=== PATIENT | female | born 1975 ===

== ENCOUNTER 2016-11-05 21:10 | Emergency (ER) | payer OTHER ==
[2016-11-05 21:15] VITALS: BP 131/70
[2016-11-05] MEDS ORDERED: Meclizine TAB* 12.5 MG PO ONE (22:11)
--- NOTE | 2016-11-05 22:13 | UC ---
Ear Complaint HPI - HPI Summary HPI Summary: 41 yo female with left tinnitis x about one week constant extremely load at time ear feels plugged at times some mild disequilibirum tonight had a 10-15 minute episode of vertigo no HERRON no vomiting recent viral uri symptoms - History of Current Complaint Chief Complaint: UCEar Stated Complaint: EAR CLOGGED Time Seen by Provider: 11/05/16 22:01 Hx Obtained From: Patient Hx Last Menstrual Period: one week ago Onset/Duration: Gradual Onset, Lasting Days Severity Initially: Mild Severity Currently: Moderate Pain Intensity: 1 Pain Scale Used: 0-10 Numeric Aggravating Factors: Nothing Alleviating Factors: Nothing Associated Signs/Symptoms: Positive: Hearing Loss - at times, URI Symptoms - Allergies/Home Medications Allergies/Adverse Reactions: Allergies Allergy/AdvReac Type Severity Reaction Status Date / Time Dextromethorphan Allergy Intermediate Rash Verified 11/05/16 21:16 Penicillins Allergy Intermediate Rash Verified 11/05/16 21:16 Sulfa Drugs Allergy Intermediate Rash Verified 11/05/16 21:16 cilantro Allergy Intermediate Rash Uncoded 11/05/16 21:16 PMH/Surg Hx/FS Hx/Imm Hx Previously Healthy: Yes - Surgical History Surgical History: Yes Surgery Procedure, Year, and Place: 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 - Family History Known Family History: Positive: Hypertension - Social History Alcohol Use: None Substance Use Type: None Smoking Status (MU): Former Smoker Type: Cigarettes Review of Systems Constitutional: Negative Skin: Negative Eyes: Negative ENT: Negative Respiratory: Negative Cardiovascular: Negative Gastrointestinal: Negative Genitourinary: Negative Motor: Negative Neurovascular: Negative Musculoskeletal: Negative Neurological: Negative Psychological: Negative All Other Systems Reviewed And Are Negative: Yes Physical Exam Triage Information Reviewed: Yes Appearance: Well-Appearing, No Pain Distress, Well-Nourished Vital Signs: Initial Vital Signs Temp 99.0 F 11/05/16 21:11 Pulse 98 11/05/16 21:11 Resp 18 11/05/16 21:11 BP 131/70 11/05/16 21:11 Pulse Ox 100 11/05/16 21:11 Vital Signs Reviewed: Yes Eyes: Positive: Conjunctiva Clear ENT: Positive: Hearing grossly normal, TMs normal. Negative: Pharynx normal, Pharyngeal erythema, Nasal congestion, Nasal drainage, Tonsillar swelling, Tonsillar exudate, Trismus, Muffled/hoarse voice Dental: Negative: Gross Decay/Caries @ Neck: Positive: Supple, Nontender, No Lymphadenopathy Respiratory: Positive: Lungs clear, Normal breath sounds, No respiratory distress, No accessory muscle use Cardiovascular: Positive: RRR, No Murmur, Pulses Normal Musculoskeletal: Positive: ROM Intact, No Edema Neurological: Positive: Alert Psychological Exam: Normal Skin Exam: Normal Ear Complaint Course/Dx - Differential Dx/Diagnosis Provider Diagnoses: tinnitus. vertigo Discharge - Discharge Plan Condition: Stable Disposition: HOME Prescriptions: Meclizine TAB* [Antivert 12.5 TAB*] 25 mg PO TID PRN #15 tab PRN Reason: Vertigo Patient Education Materials: Vertigo (ED), Tinnitus (ED) Referrals: Qasim Martini MD [Medical Doctor] - As Soon As Possible
== END 2016-11-05 22:25 | disposition home or self-care (01) ==
LOC: UCEAST 21:10
DX: H93.12 Tinnitus, left ear (principal); R42 Dizziness and giddiness
CPT/HCPCS: 99212; A9270-GY; G0463

== ENCOUNTER 2018-02-25 16:24 | Emergency (ER) | payer OTHER ==
[2018-02-25 16:45] VITALS: BP 127/80
--- NOTE | 2018-02-25 17:01 | UC ---
Dizzy HPI HPI Summary: The patient is a 43-year-old female that developed the acute onset of disequilibrium about 2:30 today. Her dizziness was associated with left facial numbness and tingling as well as left arm tingling. She denies any chest pain or palpitations. Her symptoms lasted approximately 2 hours and were completely resolved by the time I examined her. She does feel a little fatigued and states her mouth feels a little dry. 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 The patient states she has had an ASD. - History Of Current Complaint Chief Complaint: UCGeneralIllness Stated Complaint: DIZZY Time Seen by Provider: 02/25/18 16:40 Hx Obtained From: Patient Hx Last Menstrual Period: 02/18/18 Onset/Duration: Sudden Onset, Lasting Hours Timing: Hours - two Severity Initially: Moderate Severity Currently: None Pain Intensity: 0 Pain Scale Used: 0-10 Numeric Character: Dizzy Aggravating Factor(s): Change In Head Position Alleviating Factor(s): Other - spontaneously resolved Associated Signs And Symptoms: Positive: Unsteady Gait. Negative: Nausea, Vomiting, Diaphoresis, Tinnitus, Chest Pain, SOB, Palpitations, Visual Changes, Decreased Oral Intake, Change In Medication, Change In Diet, OTC Medications - Allergies/Home Medications Allergies/Adverse Reactions: Allergies Allergy/AdvReac Type Severity Reaction Status Date / Time dextromethorphan Allergy Intermediate Rash Verified 02/25/18 16:56 Penicillins Allergy Intermediate Rash Verified 02/25/18 16:56 Sulfa (Sulfonamide Allergy Intermediate Rash Verified 02/25/18 16:56 Antibiotics) cilantro Allergy Intermediate Rash Uncoded 11/05/16 21:16 Home Medications: Home Medications Budesonide/Formote 160/4.5(NF) [Symbicort 160/4.5 (NF)] 2 puff INH DAILY [History Confirmed 02/25/18] Iron,Carb/Vit C/Vit B12/Folic [Iron 100 Plus Tablet] 02/25/18 [History] PMH/Surg Hx/FS Hx/Imm Hx Previously Healthy: Yes Cardiovascular History: Other Other Cardiovascular History: ASD, Atrial myxoma Neurological History: CVA - Surgical History Surgical History: Yes Surgery Procedure, Year, and Place: 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 - Family History Known Family History: Positive: Hypertension - Social History Alcohol Use: None Substance Use Type: None Smoking Status (MU): Former Smoker Type: Cigarettes Review of Systems Constitutional: Negative Skin: Negative Eyes: Negative ENT: Negative Respiratory: Negative Cardiovascular: Negative Gastrointestinal: Negative Genitourinary: Negative Motor: Negative Neurovascular: Negative Musculoskeletal: Negative Neurological: Numbness - resolved Psychological: Negative Is Patient Immunocompromised?: No All Other Systems Reviewed And Are Negative: Yes Physical Exam Triage Information Reviewed: Yes Appearance: Well-Appearing, No Pain Distress, Well-Nourished Vital Signs: Initial Vital Signs Temp 99.4 F 02/25/18 16:41 Pulse 99 02/25/18 16:41 Resp 16 02/25/18 16:41 BP 127/80 02/25/18 16:41 Pulse Ox 96 02/25/18 16:41 Eyes: Positive: Conjunctiva Clear, Other: - EOMI/PERRL ENT: Positive: Hearing grossly normal. Negative: Nasal congestion, Nasal drainage, Trismus, Muffled voice, Hoarse voice, Dental tenderness, Sinus tenderness Neck: Positive: Supple, Nontender, No Lymphadenopathy, Other: - no bruits Respiratory: Positive: Lungs clear, Normal breath sounds, No respiratory distress, No accessory muscle use Cardiovascular: Positive: RRR, No Murmur Musculoskeletal: Positive: Strength Intact, ROM Intact, No Edema Neurological Exam: Normal Neurological: Positive: Alert, Muscle Tone Normal, Other: - CN 2-12 intact, strength 5/5, normal gait, (-) pronator drift, - [place] Psychological Exam: Normal Skin Exam: Normal Diagnostics - EKG Cardiac Rate: NL Cardiac Rhythm: Sinus: Normal Ectopy: None ST Segment: Normal Dizzy Course/Dx - Course Course Of Treatment: D/W Dr. Sosa to [facility]. pt declines EMS transfer/son driving her - Differential Dx/Diagnosis Provider Diagnoses: Dizziness/transient left arm and face paresthesias. ?TIA Discharge - Sign-Out/Discharge Documenting (check all that apply): Patient Departure All imaging exams completed and their final reports reviewed: No Studies - Discharge Plan Condition: Stable Disposition: TRANS HIGHER L OF CARE FAC Referrals: Gualberto Sosa MD [Primary Care Provider] - Additional Instructions: You may have had a TIA I suggest you go to the ER for further evaluation - Billing Disposition and Condition Condition: STABLE Disposition: Trans Higher Lvl of Care Fac
== END 2018-02-25 17:08 | disposition short-term general hospital (02) ==
LOC: UCEAST 16:24
DX: R42 Dizziness and giddiness (principal); R20.2 Paresthesia of skin; R26.81 Unsteadiness on feet; Z88.0 Allergy status to penicillin; Z88.2 Allergy status to sulfonamides; Z88.8 Allergy status to other drugs, medicaments and biological substances; Z87.891 Personal history of nicotine dependence
CPT/HCPCS: 93005; 99212; G0463

== ENCOUNTER 2018-02-25 17:41 | Emergency (ER) | payer OTHER ==
--- NOTE | 2018-02-25 18:09 | ED ---
Dizziness - HPI Summary HPI Summary: The pt is a 43 y/o female presenting to [facility] c/o of intermittent dizziness since 1400 today afternoon. The episodes last about 5 minutes worse when she turns her head sideways. She was referred from Urgent Care where was seen for the same and told that the sx could be related to a previous TIA in 2005. The suspected lack of breakfast and lunch but the dizziness is unresolved by eating. She notes fatigue and mild weakness in the face and LLE but denies numbness. - History Of Current Complaint Chief Complaint: EDDizziness Stated Complaint: DIZZINESS,TINGLING LT SIDE ARE FACE Time Seen by Provider: 02/25/18 17:56 Hx Obtained From: Patient Onset/Duration: Still Present Timing: Intermittent Episode Lasting - 5 minutes Character: Dizzy Aggravating Factor(s): Change In Head Position Alleviating Factor(s): Nothing Associated Signs And Symptoms: Positive: Negative - Numbness, Other: - Weakness of the face and LUE - Allergies/Home Medications Allergies/Adverse Reactions: Allergies Allergy/AdvReac Type Severity Reaction Status Date / Time dextromethorphan Allergy Intermediate Rash Verified 02/25/18 16:56 Penicillins Allergy Intermediate Rash Verified 02/25/18 16:56 Sulfa (Sulfonamide Allergy Intermediate Rash Verified 02/25/18 16:56 Antibiotics) cilantro Allergy Intermediate Rash Uncoded 11/05/16 21:16 PMH/Surg Hx/FS Hx/Imm Hx Previously Healthy: No Endocrine/Hematology History: Denies: Hx Diabetes, Hx Thyroid Disease Cardiovascular History: Denies: Hx Hypertension Respiratory History: Reports: Hx Asthma Denies: Hx Chronic Obstructive Pulmonary Disease (COPD) GI History: Denies: Hx Ulcer Neurological History: Reports: Hx Transient Ischemic Attacks (TIA) - In 2005 - Surgical History Surgery Procedure, Year, and Place: 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 Infectious Disease History: No Infectious Disease History: Denies: Hx Clostridium Difficile, Hx Hepatitis, Hx Human Immunodeficiency Virus (HIV), Hx of Known/Suspected MRSA, Hx Shingles, Hx Tuberculosis, Hx Known/ Suspected VRE, Hx Known/Suspected VRSA, History Other Infectious Disease, Traveled Outside the [place] in Last 30 Days - Family History Known Family History: Positive: Hypertension - Social History Occupation: Unemployed Lives: Alone Alcohol Use: None Substance Use Type: Reports: None Smoking Status (MU): Former Smoker Type: Cigarettes Review of Systems Positive: Fatigue, Other - Positive: dizziness, weakness of the face and LUE Negative: Numbness All Other Systems Reviewed And Are Negative: Yes Physical Exam - Summary Physical Exam Summary: Appearance: Well appearing, no pain distress Skin: warm, dry, reflects adequate perfusion Head/face: normal Eyes: EOMI, JANELL ENT: normal Neck: supple, non-tender Respiratory: CTA, breath sounds present Cardiovascular: RRR, pulses symmetrical Abdomen: non-tender, soft Bowel: present Musculoskeletal: normal, strength/ROM intact Neuro: normal, sensory motor intact, A&Ox3 GCS: 15 Triage Information Reviewed: Yes Vital Signs On Initial Exam: Initial Vitals Temp Pulse Resp BP Pulse Ox 97.9 F 92 17 127/78 100 02/25/18 17:53 02/25/18 17:53 02/25/18 17:53 02/25/18 17:53 02/25/18 17:53 Vital Signs Reviewed: Yes Diagnostics - Vital Signs Vital Signs Temp Pulse Resp BP Pulse Ox 02/25/18 17:53 97.9 F 92 17 127/78 100 - Laboratory Result Diagrams: 02/25/18 19:10 02/25/18 19:10 Lab Statement: Any lab studies that have been ordered have been reviewed, and results considered in the medical decision making process. - CT Brain CT CT Interpretation Completed By: Radiologist - IMPRESSION: 1. No acute intracranial abnormality.The ED physician reviewed this radiology report. - EKG 18:15 Cardiac Rate: NL - 92 bpm EKG Rhythm: Sinus Rhythm EKG Interpretation: No acute changes Dizzy Course/Dx - Course Course Of Treatment: A 43-year-old F presents to the ED with a CC of intermittent dizziness since 1400 today afternoon. The episodes last about 5 minutes worse when she turns her head sideways. She was referred from Urgent Care where was seen for the same and told that the sx could be related to a previous TIA in 2005. The dizziness is unresolved by eating. She notes fatigue and mild weakness in the face and LLE but denies numbness. A physical exam and EKG are both normal. A brain CT reveals no acute intracranial abnormality. In the ED course, pt was given Meclizine 25 mg PO which improved the symptoms. Patient will be discharged with a final Dx of vertigo and a referral to Dr. Raf Prasad MD (ENT). Allergies noted. - Diagnoses Differential Diagnosis/HQI/PQRI: Benign Paroxysmal Positional Vertigo, CVA, Dysrhythmia, Labyrinthitis Provider Diagnoses: Vertigo Discharge - Sign-Out/Discharge Documenting (check all that apply): Patient Departure - DC - Discharge Plan Condition: Improved Disposition: HOME Prescriptions: Meclizine TAB* [Antivert 12.5 TAB*] 25 mg PO TID #20 tab Patient Education Materials: Vertigo (ED) Referrals: Gualberto Sosa MD [Primary Care Provider] - 3 Days Mark Carbone MD [Medical Doctor] - As Soon As Possible - Billing Disposition and Condition Condition: IMPROVED Disposition: Home - Attestation Statements Document Initiated by Scribe: Yes Documenting Scribe: Jennie Lester Provider For Whom Scribe is Documenting (Include Credential): Dr. Otto Sosa MD Scribe Attestation: Jennie Medina , scribed for Dr. Otto Sosa MD on 02/25/18 at 2108. Scribe Documentation Reviewed: Yes Provider Attestation: The documentation as recorded by the scribeJennie accurately reflects the service I personally performed and the decisions made by me, Dr. Otto Sosa MD NIH Scale - NIH Scale Level of Consciousness: Alert/Keenly Responsive Ask Patient the Month and His/Her Age: Both Correct Ask Pt to Open/Close Eyes and Compliance Field Technician/Release Non-Paretic Hand: Both Correctly Best Gaze (Only Horizontal Eye Movement): Normal Visual Field Testing: No Visual Loss Facial Paresis-Pt to Smile & Close Eyes or Grimace Symmetry: Normal/Symmetrical Motor Function - Right Arm: No Drift-Holds 10 Seconds Motor Function - Left Arm: No Drift-Holds 10 Seconds Motor Function - Right Leg: No Drift-Holds 10 Seconds Motor Function - Left Leg: No Drift-Holds 10 Seconds Limb Ataxia-Must be out of Proportion to Weakness Present: Absent Sensory (Use Pinprick to Test Arms/Legs/Trunk/Face): Normal Best Language (Describe Picture, Name Items): No Aphasia Dysarthria (Read Several Words): Normal Extinction and Inattention: No Abnormality Total Score: 0
--- NOTE | 2018-02-25 19:17 | RAD ---
EXAM: CT Head Without Intravenous Contrast CLINICAL HISTORY: 43 years old, female; Signs and symptoms; Dizziness; Patient HX: HX CVA, new onset dizziness; Additional info: Dizzy TECHNIQUE: Axial computed tomography images of the head/brain without intravenous contrast. All CT scans at this facility use at least one of these dose optimization techniques: automated exposure control; mA and/or kV adjustment per patient size (includes targeted exams where dose is matched to clinical indication); or iterative reconstruction. COMPARISON: No relevant prior studies available. FINDINGS: Brain: Unremarkable. No hemorrhage. No significant white matter disease. No edema. Ventricles: Unremarkable. No ventriculomegaly. Bones/joints: Unremarkable. No acute fracture. Soft tissues: Unremarkable. Sinuses: Unremarkable as visualized. No acute sinusitis. Mastoid air cells: Unremarkable as visualized. No mastoid effusion. IMPRESSION: 1. No acute intracranial abnormality.
[2018-02-25 19:22] LABS: Urine Appearance Clear; Urine Blood 2+ (Negative); Urine Color Yellow; Urine Ketones Negative (Negative); Urine Protein Negative (Negative); Urine Specific Gravity 1.006 (1.010-1.030); Urine Urobilinogen Negative (Negative)
[2018-02-25] MEDS ORDERED: Meclizine TAB* 12.5 MG PO ONE (19:28)
[2018-02-25 19:30] LABS: ABS Basophils 0.1 10^3/ul (0-0.2); ABS Eosinophils 0.1 10^3/ul (0-0.6); ABS Lymphocytes 1.6 10^3/ul (1.0-4.8); ABS Monocytes 0.4 10^3/ul (0-0.8); ABS Nucleated RBC 0 10^3/ul; Eosinophil % 0.8 % (0-6); Hematocrit 41 % (35-47); Hemoglobin 13.7 g/dl (12.0-16.0); Lymphocyte % 14.7 % (25-47); Mean Corpuscular HGB Conc 33 g/dl (31-36); Mean Corpuscular Hemoglobin 29 pg (27-31); Mean Corpuscular Volume 86 fL (80-97); Mean Platelet Volume 7.3 um3 (7.4-10.4); Nucleated Red Blood Cells % 0; Platelet Count 322 10^3/ul (150-450); Red Blood Count 4.75 10^6/ul (4.00-5.40); Red Cell Distribution Width 14 % (10.5-15); White Blood Count 11.2 10^3/ul (3.5-10.8)
[2018-02-25 19:40] LABS: Urine Red Blood Cell Trace(0-2/hpf) (Absent); Urine White Blood Cell Trace(0-5/hpf) (Absent)
[2018-02-25 20:47] VITALS: BP 127/73
== END 2018-02-25 20:46 | disposition home or self-care (01) ==
LOC: ED 17:41
DX: R42 Dizziness and giddiness (principal); R53.1 Weakness; R53.83 Other fatigue
CPT/HCPCS: 36415; 70450; 80053; 81003; 81015; 84702; 85025; 85610; 85730; 87086; 93005; 99284; A9270-GY

== ENCOUNTER 2018-04-06 12:25 | Emergency (ER) | payer OTHER ==
[2018-04-06 15:50] VITALS: BP 112/84
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
== END 2018-04-06 15:48 | disposition home or self-care (01) ==
LOC: ED 12:25
DX: S29.012A Strain of muscle and tendon of back wall of thorax, initial encounter (principal); V48.5XXA Car driver injured in noncollision transport accident in traffic accident, initial encounter; Y92.410 Unspecified street and highway as the place of occurrence of the external cause; M50.323 Other cervical disc degeneration at C6-C7 level; M41.84 Other forms of scoliosis, thoracic region; Z88.0 Allergy status to penicillin; Z88.2 Allergy status to sulfonamides; Z88.8 Allergy status to other drugs, medicaments and biological substances; Z87.891 Personal history of nicotine dependence
CPT/HCPCS: 72050; 72070; 72110; 99282